=== PATIENT | female | born 1975 | race Caucasian/White ===

== ENCOUNTER → 2017-05-17 | Outpatient (CLI) | payer BC ==
[2015-05-01 19:56] VITALS: BP 105/68
[~2017-05-17] MED LIST: ALLERGY RELIEF10 M3 PO; LEVOTHROID SO0.05 MG PO; LIORESAL 1010 MG/TAB PO; MEDROL 4MG DOSPA4 MG PO; NORCO 325 MG-51 TAB PO; NORFLEX100 MG PO; ORPHENADRINE C100 MG PO; TORADOL10 MG PO; TYLENOL 325MG325 MG PO
== END ==
LOC: MAMMO 15:49 → RAD 16:00
DX: Z12.31 Encounter for screening mammogram for malignant neoplasm of breast (principal)

== ENCOUNTER → 2020-05-27 | Outpatient (CLI) | payer BC ==
[2015-05-01 19:56] VITALS: BP 105/68
== END ==
LOC: LAB 11:11
DX: R50.9 Fever, unspecified (principal); Z20.822 Contact with and (suspected) exposure to COVID-19

== ENCOUNTER → 2020-10-22 | Day surgery (SDC) | payer BC | LOC: MSO 08:00 | DX: R19.7 Diarrhea, unspecified (principal); R10.9 Unspecified abdominal pain; F17.290 Nicotine dependence, other tobacco product, uncomplicated | CPT/HCPCS: 00811; J2704; J7120 ==

== ENCOUNTER → 2021-02-17 | Outpatient (CLI) | payer BC | LOC: MAMMO 15:07 | DX: Z12.31 Encounter for screening mammogram for malignant neoplasm of breast (principal) ==

== ENCOUNTER → 2023-10-30 | Outpatient (CLI) | payer BC | LOC: MAMMO 14:22 | DX: Z12.31 Encounter for screening mammogram for malignant neoplasm of breast (principal) ==